=== PATIENT | female | born 1950 | race Caucasian/White ===

== ENCOUNTER 2017-04-21 10:00 | Outpatient (RCR) | payer MEDICARE ==
[2017-03-29 13:15] VITALS: BP 114/71
--- NOTE | 2017-03-29 13:20 | ONC Progress Note - NP.Halsey ---
Patient History Date of Service Mar 29, 2017 Reason For Visit/HPI Patient is seen in the clinic today for follow-up of her breast cancer. Patient is currently a stage IV according to PET/CT scan and was started on ibrance with her Femara by Dr. Kaden Breaux at [facility]. Patient started Ibrance in October and reports that she has had to decrease the dose due to neutropenia. She is currently on cycle 4 and has 1 week of treatment to complete this cycle. She has required 2 week break prior to each dose reduction. She has been out of state for the last 3 months and is back in town. She is currently on 75 mg daily 3 weeks on a 4 week cycle. She currently is looking for a breast specialist oncology provider. She is not sure she wants to travel to see Dr. Kaden Breaux on a monthly basis especially with the winter months. She is in need of labs today and then we will follow monthly with labs. She has not had any further testing done recently. Oncology History The patient is a 66-year-old female who presented with a mass of the right breast. Her mammogram and ultrasound showed an area suspicious in the right breast upper outer quadrant. The patient ended by having bilateral mastectomy and right axillary lymph node biopsy done on March 08, 2016. The pathology came back positive for 2 cm invasive lobular carcinoma of the right breast, grade III/III, with 8/8 lymph nodes coming back positive for metastasis. ER/VA positive, HER2/alcides negative. Ki-67 was 84%. CA 27-29 was normal at 8. The patient had an echocardiogram on February 23, 2016, which showed left ventricular ejection fraction of 55%. MRI of the brain done on March 28, 2016 was negative for intracranial metastasis and PET scan done the same day showed multiple small, scattered sclerotic non-hypermetabolic bone lesions; metastatic disease could not be fully ruled out. The patient has been evaluated by Dr. Nimco Watkins at [facility] with recommendation of treatment with dose-dense AC to be followed by dose-dense Taxol and patient will start adjuvant hormonal therapy at the same time of Taxol to be followed by radiation therapy versus inclusion in a clinical trial. The patient started adjuvant dose-dense AC with Adriamycin and cyclophosphamide on April 07, 2016. She started dose dense adjuvant Taxol therapy on June 07, 2016. The patient completed four cycles of dose-dense Taxol on July 18, 2016. Radiation therapy was completed between 08/26/2016 and 10/12/2016 to the right breast and axilla to a therapeutic dose of 6040 cGy. Repeat PET scan indicates stage IV disease. Patient had a 2nd biopsy which was inconclusive according to her. Patient was started on ibrance early in October with concurrent Femara. Patient has required dose reduction due to neutropenia. She is currently on 75 mg daily Medical History Family History: FH: HTN (hypertension) MOTHER, , Age:91 FH: [place] (myocardial infarction) MOTHER, , Age:91 FH: breast cancer Aunt Cousin FH: glaucoma MOTHER, , Age:91 FH: lung cancer MOTHER, , Age:91 FH: macular degeneration MOTHER, , Age:91 FH: prostate cancer Cousin Psychosocial History Social History She is single Occupational History She is retired Alcohol History She denies abuse Smoking History: No Smoking Status: Never Smoker Exposure to Second Hand Smoke?: No Medications and Allergies Active Scripts Letrozole (FEMARA) 2.5 Mg Tab, 2.5 MG GT DAILY, #30 TAB 9 Refills Prov:NIMCO DUMONT PATIENT SAFETY MANAGER-BC, ONC 05/23/16 Reported Medications Glucosamine Sulfate 2KCL (GLUCOSAMINE) 1,000 Mg Tablet, 1000 MG PO 03/29/17 Palbociclib (Ibrance) 75 Mg Capsule 03/29/17 Ubidecarenone (CO Q-10) 10 Mg Capsule, 10 MG PO DAILY, CAPSULE 06/16/16 Cyanocobalamin (Vitamin B-12) (VITAMIN B-12) 1,000 Mcg Tablet, 1000 MCG PO DAILY 06/16/16 Vitamin B Complex (B COMPLEX) 1 Each Tablet, 1 EACH PO DAILY 06/16/16 Phytonadione (VITAMIN K) 100 Mcg Tablet, 100 MCG PO DAILY 06/16/16 Calcium Citrate/Vitamin D3 (CALCIUM CITRATE - VIT D TABLET) 1 Each Tablet, 2 TAB PO DAILY, TAB 03/15/16 Cholecalciferol (Vitamin D3) (VITAMIN D3) 5,000 Unit Tablet, 2 TAB PO DAILY, TAB 03/15/16 [Areds 2] No Conflict Check, 2 TAB PO DAILY for Eye Health 03/15/16 Discontinued Reported Medications Melatonin/Pyridoxine (MELATONIN 3 MG TABLET) 1 Each Tablet, 1 TAB PO QHS Y for INSOMNIA, TAB 03/15/16 Discontinued Scripts Lorazepam (ATIVAN) 0.5 Mg Tablet, 0.5 MG PO Q4-6H Y for NAUSEA, #10 TAB Prov:NIMCO DUMONT PATIENT SAFETY MANAGER-BC, ONC 04/07/16 Ondansetron Hcl (ZOFRAN) 8 Mg Tablet, 8 MG PO Q8H, #10 TAB Prov:NIMCO DUMONT PATIENT SAFETY MANAGER-BC, ONC 04/07/16 Allergies: Coded Allergies: No Known Drug Allergies (Verified , 06/05/12) Review of System/Physical Exam Review of Systems All Systems Reviewed/Normal: Yes, Except as Noted Hematologic: Positive for Fatigue Physical Exam Vital Signs Temperature: 98.6 Pulse: 70 BP Systolic: 114 BP Diastolic: 71 Respiratory Rate: 16 O2 SAT: 94 O2 Delivery: Height (inches) 62.00 Weight lb: 113 Weight oz: Weight Kg (Karan): Pain: 0 ECOG Score: 0 General: Stable, Well Developed, Well Nourished, Not In Acute Distress Lungs: Clear to Auscultation Heart: Regular Rate, Regular Rhythm, No Gallops Abdomen: Other (bowel sounds active) Extremities: No Cyanosis, No Edema Psychiatric: Mood appears normal, Affect appears normal, Other (exam was deferred today to discuss current treatment and management of therapy.) Diagnostic Studies Diagnostic Studies Laboratory CBC, CMP and vitamin D drawn today Item Value Date Time White Blood Count 2.1 k/uL L 03/29/17 1345 Red Blood Count 3.78 M/uL L 03/29/17 1345 Mean Corpuscular Volume 101.2 fL H 03/29/17 1345 Mean Corpuscular Hemoglobin 35.0 pg H 03/29/17 1345 Neutrophils # (Auto) 1.2 K/uL L 03/29/17 1345 Vitamin D 25-Hydroxy 74 ng/ml 03/29/17 1345 Sodium Level 137 mmol/L 03/29/17 1345 Potassium Level 4.0 mmol/L 03/29/17 1345 Chloride Level 102 mmol/L 03/29/17 1345 Carbon Dioxide Level 25 mmol/L 03/29/17 1345 Blood Urea Nitrogen 15 mg/dl 03/29/17 1345 Creatinine 0.90 mg/dl 03/29/17 1345 Glomerular Filtration Rate Calc > 60.0 03/29/17 1345 Random Glucose 79 mg/dl 03/29/17 1345 Calcium Level 9.4 mg/dl 03/29/17 1345 Total Bilirubin 0.7 mg/dl 03/29/17 1345 Aspartate Amino Transf (AST/SGOT) 33 U/L 03/29/17 1345 Alanine Aminotransferase (ALT/SGPT) 39 U/L 03/29/17 1345 Alkaline Phosphatase 49 U/L 03/29/17 1345 Total Protein 7.1 gm/dl 03/29/17 1345 Albumin 4.2 g/dl 03/29/17 1345 Assessment and Plan Assessment & Plan 1. Initial staging with consult was a Stage III right invasive lobular carcinoma of the right breast status post bilateral mastectomy with right axillary lymph node dissection done March 08, 2016 for 2 cm invasive lobular carcinoma grade 2/3 with 8 out of 8 lymph nodes positive for metastasis, ER/VA positive, HER2/alcides negative, Ki-67 8.4%. MRI of the brain done March 2016 was negative for intracranial metastases, and PET scan showed multiple sclerotic nonhypermetabolic bone lesions. Echocardiogram February 23, 2016 did reveal normal left ventricular ejection fraction of 55%. Patient has been evaluated by Dr. Nimco Watkins at [facility], who recommended dose dense AC to be followed by dose dense Taxol, and patient completed 4 cycles of dose dense AC between April 07, 2016 through May 19, 2016. After that, she received dose dense Taxol for 4 cycles between June 07, 2016 through July 18, 2016 with concurrent hormonal therapy with Femara. She completed her radiation therapy. Her PET scan was really positive, but it was thought may be due to her Neulasta shot, but her repeated scan was also suggestive of osseous metastasis by radiologist report, although it looks the same like the previous scan. Patient was seen by clinical trial staff and was not eligible. She consulted with Dr. Kaden Breaux and completed a second biopsy of the left hip which was inconclusive again as the previous. She was started on Ibrance in October 2016 with Femara. Patient has required a dose reduction due to neutropenia. She has been followed by Dr. Kaden Breaux. She is currently on cycle 4 of ibrance 75 mg dose week 3 today. She tentatively will start cycle 5 on April 12. She will need a new prescription through [facility] pharmacy. 2. Sclerotic bone lesions, negative by PET scan twice. Her bone scan is still positive, which was done recently on October 13, 2016. She has discussed the use of Xgeva with Dr. Breaux but has not been started on it. 3. Vitamin D deficiency. Patient's vitamin D has improved on 10,000 units daily. level is at 74. 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 Sweetie Breaux if she follows with him again. She is considering establishing care with Dr. Rios. I personally spent a total of 30 minutes. Of that 30 minutes was counseling/ coordination of patient's care. See my note above for details. Copies to: DEMARIO ZHU DNP, PATIENT SAFETY MANAGER-BC NIMCO DUMONT PATIENT SAFETY MANAGER-BC, ONC Mar 29, 2017 13:20
[2017-03-29 14:10] LABS: PLATELET COUNT, AUTOMATED 164 K/uL (150-450)
[2017-04-12 09:10] VITALS: BP 93/61
[2017-04-12 09:13] LABS: PLATELET COUNT, AUTOMATED 138 K/uL (150-450)
--- NOTE | 2017-04-12 12:04 | ONC Progress Note - NP.Halsey ---
Patient History Date of Service Apr 12, 2017 Reason For Visit/HPI Patient is seen in the clinic today for follow-up of her breast cancer. Patient is currently a stage IV according to PET/CT scan and was started on ibrance with her Femara by Dr. Kaden Breaux at [facility]. Patient started Ibrance in October and reports that she has had to decrease the dose due to neutropenia. She has completed cycle 4 . Her absolute neutrophil count is 700 today so she will wait one additional week, redraw labs and possibly start. She has required 2 week break prior to each previously and the dose reduction. She is currently on 75 mg daily 3 weeks on a 4 week cycle. She currently is looking for a breast specialist oncology provider. She is not sure she wants to travel to see Dr. Kaden Breaux on a monthly basis especially with the winter months. She also thinks that maybe she will go back to [facility] however does not want to see them on a monthly basis. Patient reports that she has had Xgeva which was initiated in December by Dr. Kaden Breaux. She does not believe that she has had a 2nd Xgeva since that time. Problem List (1) Hypercholesteremia (2) Post-menopausal (3) Metastatic breast cancer (4) Estrogen receptor positive (5) Chemotherapy induced nausea and vomiting (6) Invasive lobular carcinoma of breast, stage 3 (7) Breast cancer, right Oncology History The patient is a 66-year-old female who presented with a mass of the right breast. Her mammogram and ultrasound showed an area suspicious in the right breast upper outer quadrant. The patient ended by having bilateral mastectomy and right axillary lymph node biopsy done on March 08, 2016. The pathology came back positive for 2 cm invasive lobular carcinoma of the right breast, grade III/III, with 8/8 lymph nodes coming back positive for metastasis. ER/NJ positive, HER2/alcides negative. Ki-67 was 84%. CA 27-29 was normal at 8. The patient had an echocardiogram on February 23, 2016, which showed left ventricular ejection fraction of 55%. MRI of the brain done on March 28, 2016 was negative for intracranial metastasis and PET scan done the same day showed multiple small, scattered sclerotic non-hypermetabolic bone lesions; metastatic disease could not be fully ruled out. The patient has been evaluated by Dr. Nimco Watkins at [facility] with recommendation of treatment with dose-dense AC to be followed by dose-dense Taxol and patient will start adjuvant hormonal therapy at the same time of Taxol to be followed by radiation therapy versus inclusion in a clinical trial. The patient started adjuvant dose-dense AC with Adriamycin and cyclophosphamide on April 07, 2016. She started dose dense adjuvant Taxol therapy on June 07, 2016. The patient completed four cycles of dose-dense Taxol on July 18, 2016. Radiation therapy was completed between 08/26/2016 and 10/12/2016 to the right breast and axilla to a therapeutic dose of 6040 cGy. Repeat PET scan indicates stage IV disease. Patient had a 2nd biopsy which was inconclusive according to her. Patient was started on ibrance early in October with concurrent Femara. Patient has required dose reduction due to neutropenia. She is currently on 75 mg daily Patient reports that Dr. Kaden Breaux started her on Xgeva 120 mg in December but she has not had a 2nd dose due to her traveling. I will reinitiate this today Medical History Family History: FH: HTN (hypertension) MOTHER, , Age:91 FH: [place] (myocardial infarction) MOTHER, , Age:91 FH: breast cancer Aunt Cousin FH: glaucoma MOTHER, , Age:91 FH: lung cancer MOTHER, , Age:91 FH: macular degeneration MOTHER, , Age:91 FH: prostate cancer Cousin Psychosocial History Social History She is single Occupational History She is retired Alcohol History She denies abuse Smoking History: No Smoking Status: Never Smoker Exposure to Second Hand Smoke?: No Medications and Allergies Active Scripts Letrozole (FEMARA) 2.5 Mg Tab, 2.5 MG GT DAILY, #30 TAB 9 Refills Prov:NIMCO DUMONT CUSTOMER ACCOUNT COORDINATOR-BC, ONC 05/23/16 Reported Medications [tumeric] No Conflict Check, PO 04/12/17 Glucosamine Sulfate 2KCL (GLUCOSAMINE) 1,000 Mg Tablet, 1000 MG PO 03/29/17 Palbociclib (Ibrance) 75 Mg Capsule 03/29/17 Ubidecarenone (CO Q-10) 10 Mg Capsule, 10 MG PO DAILY, CAPSULE 06/16/16 Cyanocobalamin (Vitamin B-12) (VITAMIN B-12) 1,000 Mcg Tablet, 1000 MCG PO DAILY 06/16/16 Vitamin B Complex (B COMPLEX) 1 Each Tablet, 1 EACH PO DAILY 06/16/16 Phytonadione (VITAMIN K) 100 Mcg Tablet, 100 MCG PO DAILY 06/16/16 Calcium Citrate/Vitamin D3 (CALCIUM CITRATE - VIT D TABLET) 1 Each Tablet, 2 TAB PO DAILY, TAB 03/15/16 Cholecalciferol (Vitamin D3) (VITAMIN D3) 5,000 Unit Tablet, 2 TAB PO DAILY, TAB 03/15/16 [Areds 2] No Conflict Check, 2 TAB PO DAILY for Eye Health 03/15/16 Allergies: Coded Allergies: No Known Drug Allergies (Verified , 06/05/12) Review of System/Physical Exam Review of Systems All Systems Reviewed/Normal: Yes, Except as Noted Hematologic: Positive for Fatigue Psychiatric: Depression (patient is very angry and frustrated with her current diagnosis and does not see a positive side most days regarding this diagnosis.) Physical Exam Vital Signs Temperature: 98.9 Pulse: 70 BP Systolic: 93 BP Diastolic: 61 Respiratory Rate: 16 O2 SAT: 95 O2 Delivery: Height (inches) 62.00 Weight lb: 113 Weight oz: Weight Kg (Karan): Pain: 0 ECOG Score: 0 General: Stable, Well Developed, Well Nourished, Not In Acute Distress Heart: Regular Rate, Regular Rhythm, No Gallops Abdomen: Soft and Nontender, No Hepatosplenomegaly, No Masses Psychiatric: Mood appears normal, Affect appears normal (normal regarding patient's current diagnosis.) Diagnostic Studies Diagnostic Studies Laboratory Laboratory Tests 04/12/17 09:00 Laboratory Tests 03/29/17 13:45: Vitamin D 25-Hydroxy 74 04/12/17 09:00: White Blood Count 1.7, Red Blood Count 3.74, Hemoglobin 13.0, Hematocrit 37.5, Mean Corpuscular Volume 100.3, Mean Corpuscular Hemoglobin 34.9, Mean Corpuscular Hemoglobin Concent 34.8, Red Cell Distribution Width 14.7, Platelet Count 138, Mean Platelet Volume 7.8, Neutrophils (%) (Auto) 40.6, Lymphocytes (% ) (Auto) 31.4, Monocytes (%) (Auto) 21.5, Eosinophils (%) (Auto) 4.9, Basophils (%) (Auto) 1.6, Nucleated RBC Relative Count (auto) 0.1, Neutrophils # (Auto) 0.7, Lymphocytes # (Auto) 0.5, Monocytes # (Auto) 0.4, Eosinophils # (Auto) 0.1 , Basophils # (Auto) 0.0, Nucleated RBC Absolute Count (auto) 0.00, Peripheral Blood Smear Yes, Sodium Level 140, Potassium Level 4.3, Chloride Level 107, Carbon Dioxide Level 26, Blood Urea Nitrogen 14, Creatinine 0.70, Glomerular Filtration Rate Calc > 60.0, Random Glucose 87, Calcium Level 8.7, Total Bilirubin 0.3, Aspartate Amino Transf (AST/SGOT) 32, Alanine Aminotransferase ( ALT/SGPT) 35, Alkaline Phosphatase 40, Total Protein 6.6, Albumin 3.8 Assessment and Plan Assessment & Plan 1. Initial staging with consult was a Stage III right invasive lobular carcinoma of the right breast status post bilateral mastectomy with right axillary lymph node dissection done March 08, 2016 for 2 cm invasive lobular carcinoma grade 2/3 with 8 out of 8 lymph nodes positive for metastasis, ER/NJ positive, HER2/alcides negative, Ki-67 8.4%. MRI of the brain done March 2016 was negative for intracranial metastases, and PET scan showed multiple sclerotic nonhypermetabolic bone lesions. Echocardiogram February 23, 2016 did reveal normal left ventricular ejection fraction of 55%. Patient has been evaluated by Dr. Nimco Watkins at [facility], who recommended dose dense AC to be followed by dose dense Taxol, and patient completed 4 cycles of dose dense AC between April 07, 2016 through May 19, 2016. After that, she received dose dense Taxol for 4 cycles between June 07, 2016 through July 18, 2016 with concurrent hormonal therapy with Femara. She completed her radiation therapy. Her PET scan was really positive, but it was thought may be due to her Neulasta shot, but her repeated scan was also suggestive of osseous metastasis by radiologist report, although it looks the same like the previous scan. Patient was seen by clinical trial staff and was not eligible. She consulted with Dr. Kaden Breaux and completed a second biopsy of the left hip which was inconclusive again as the previous. She was started on Ibrance in October 2016 with Femara. Patient has required a dose reduction due to neutropenia. She has been followed by Dr. Kaden Breaux. She has just completed cycle 4 of ibrance 75 mg dose week. Her ANC is 700 today so I will hold an additional week and repeat labs. If ANC is 1000 or greater she will restart Ibrance next week. She tentatively will start cycle 5 on April 19 at the 75 mg dose. Patient also reports that she was started on Xgeva 120 mg in December and has not had a 2nd dose. I will restart this on a monthly basis next week. Patient will also have a PET/CT scan completed in May prior to starting cycle 6 of current treatment for evaluation. Patient is encouraged to visit with [facility] and see if they would continue to monitor her care on a 3-4 month basis. She may follow with Dr. Velasquez in the [place] clinic. She may seek care by a new provider. She is not sure if she wants to continue following with Dr. Kaden Breaux as he is a research specialist. He is not currently on a clinical trial. 2. Sclerotic bone lesions, negative by PET scan twice. Her bone scan is still positive, which was done recently on October 13, 2016. I will repeat a PET CT scan in May. 3. Vitamin D deficiency. Patient's vitamin D has improved on 10,000 units daily. level is at 74. I personally spent a total of 30 minutes. Of that 30 minutes was counseling/ coordination of patient's care. See my note above for details. NIMCO DUMONT CUSTOMER ACCOUNT COORDINATOR-BC, ONC Apr 12, 2017 12:04
[2017-04-19 11:08] LABS: PLATELET COUNT, AUTOMATED 204 K/uL (150-450)
[~2017-04-21] VITALS: Ht 157.5 cm; Wt 52.1 kg
[~2017-04-21 10:00] MED LIST: AREDS II OP; Areds 2 PO; CALC-757 PO; CALC-797 PO; CHOL500025 PO; CYA1000 PO; DENOSUMAB 120 MG/1.7 ML VIAL SUBQ ONE; DEX4 PO; DIPH0.5V3 IM; ERG400 PO; FLU60VIA21 IM ONLY; GARL500T PO; GLUC100026 PO; KELP PO; LETPT GT; LEVO-85 PO; LORA-1455 PO; MAGN27TA6 PO; MAGN400C PO; MELA1TAB27 PO; ONDA8TAB91 PO; PALB75CA; PHYT100T4 PO; PNEU0.5D3 IM; POTA99TA6 PO; RISE5TAB PO; UBID10CA11 PO; VITA-175 PO; tumeric PO
[2017-04-21 11:42] LABS: PLATELET COUNT, AUTOMATED 227 K/uL (150-450)
[2017-05-18 14:06] LABS: PLATELET COUNT, AUTOMATED 146 K/uL (150-450)
== END 2017-05-19 11:11 | disposition home or self-care (01) ==
LOC: SPU 10:00
PROVIDERS: ATTEND Nurse Practitioner Family
DX: C50.911 Malignant neoplasm of unspecified site of right female breast (principal); C77.9 Secondary and unspecified malignant neoplasm of lymph node, unspecified; Z92.3 Personal history of irradiation; Z92.21 Personal history of antineoplastic chemotherapy; M89.9 Disorder of bone, unspecified; E55.9 Vitamin D deficiency, unspecified; Z79.899 Other long term (current) drug therapy; E78.00 Pure hypercholesterolemia, unspecified; Z78.0 Asymptomatic menopausal state; R11.2 Nausea with vomiting, unspecified; R53.83 Other fatigue; Z17.0 Estrogen receptor positive status [ER+]
CPT/HCPCS: 36415; 82306; 82378; 83735; 84100; 85025; 86300; 86304; 96372; G0463; J0897; 82040; 82247; 82310; 82374; 82435; 82565; 82947; 84075; 84132; 84155; 84295; 84450; 84460; 84520; 99212

== ENCOUNTER 2017-06-15 10:11 | Outpatient (RCR) | payer MEDICARE ==
[2017-05-24 15:19] VITALS: BP 132/80
[2017-06-15 10:36] LABS: PLATELET COUNT, AUTOMATED 149 K/uL (150-450)
[2017-06-15 10:46] VITALS: BP 99/63
[2017-06-19] MEDS ORDERED: LUTE20TA PO (13:09)
== END 2017-06-21 10:51 | disposition home or self-care (01) ==
LOC: SPU 10:11
PROVIDERS: ATTEND Nurse Practitioner Family
DX: C50.911 Malignant neoplasm of unspecified site of right female breast (principal)
CPT/HCPCS: 36415; 85025; 96372; J0897; 82040; 82247; 82310; 82374; 82435; 82565; 82947; 84075; 84132; 84155; 84295; 84450; 84460; 84520

== ENCOUNTER 2017-06-29 03:30 | Day surgery (SDC) | payer MEDICARE ==
[2017-06-29] VITALS (7 sets, daily range): BP systolic 86–109; BP diastolic 56–83
[~2017-06-29] VITALS: Ht 157.5 cm; Wt 49.9 kg
[~2017-06-29 03:30] MED LIST changes: -DENOSUMAB 120 MG/1.7 ML VIAL SUBQ ONE; +LUTE20TA PO
--- NOTE | 2017-06-29 06:29 | Post Operative Progress Note ---
Post Operative Progress Note Date: Jun 29, 2017 Time: 08:49 Surgeon: yesenia Anesthesia: dr orozco Pre-Op Diagnosis: personal history of polyps Post-Op Diagnosis: sigmoid diverticulosis Procedure(s): colonoscopy KAMAR KRISHNAN MD Jun 29, 2017 06:29
--- NOTE | 2017-06-29 06:30 | Short(Outpt) Discharge Summary ---
Discharge Summary Reason for Hosp/Final Diag: (1) Encounter for colonoscopy due to history of adenomatous colonic polyps Hospital Course & Plan: sigmoid diverticulosis Departure Discharge to: Home Discharge Instructions Home Meds Active Scripts Letrozole (FEMARA) 2.5 Mg Tab, 2.5 MG GT DAILY, #30 TAB 9 Refills Prov:BECKY DUMONT Tucker CONTRACT RUNNER-BC, ONC 05/23/16 Reported Medications Lutein (LUTEIN) 20 Mg Tablet, 20 MG PO 06/19/17 [tumeric] No Conflict Check, PO 04/12/17 Glucosamine Sulfate 2KCL (GLUCOSAMINE) 1,000 Mg Tablet, 1000 MG PO 03/29/17 Palbociclib (Ibrance) 75 Mg Capsule 03/29/17 Ubidecarenone (CO Q-10) 10 Mg Capsule, 10 MG PO DAILY, CAPSULE 06/16/16 Cyanocobalamin (Vitamin B-12) (VITAMIN B-12) 1,000 Mcg Tablet, 1000 MCG PO DAILY 06/16/16 Vitamin B Complex (B COMPLEX) 1 Each Tablet, 1 EACH PO DAILY 06/16/16 Phytonadione (VITAMIN K) 100 Mcg Tablet, 100 MCG PO DAILY 06/16/16 Calcium Citrate/Vitamin D3 (CALCIUM CITRATE - VIT D TABLET) 1 Each Tablet, 2 TAB PO DAILY, TAB 03/15/16 Cholecalciferol (Vitamin D3) (VITAMIN D3) 5,000 Unit Tablet, 2 TAB PO DAILY, TAB 03/15/16 Diet: High Fiber Activity: As Tolerated KAMAR KRISHNAN MD Jun 29, 2017 06:30
[2017-06-29] MEDS ORDERED: MIDAZOLAM 2 MG/2 ML VIAL IVP PRN (07:20)
[2017-06-29] MEDS ORDERED: LIDOCAINE/SOD BICARB 8.4% SYR ID ONE (07:20)
[2017-06-29] MEDS ORDERED: NORMOSOL R SOLN(*) 1000 ML BAG 1,000 ML IV PRN (07:20)
[2017-06-29] MEDS ORDERED: PROPOFOL EMUL(*) 10MG/ML 20 ML 20 ML ONE (07:25)
--- NOTE | 2017-06-29 14:27 | OPERATIVE REPORT 1 ---
EVENT DATE: June 29, 2017 SURGEON: Hipolito Jackson MD ANESTHESIOLOGIST: Reji Franco MD ANESTHESIA: Sedation. PREOPERATIVE DIAGNOSIS Personal history of polyps. POSTOPERATIVE DIAGNOSIS Diverticulosis. DESCRIPTION OF PROCEDURE The patient was placed in the left lateral decubitus position and given intravenous sedation. The rectal exam was unremarkable. A flexible colonoscope was inserted and advanced to the cecum. She had an excellent bowel prep. Ileocecal valve and the terminal ileum were identified. The scope was slowly withdrawn. Care was taken to look behind the haustral folds. No abnormalities were noted in the cecum, right colon, or transverse colon. In the descending colon and sigmoid colon, she had several diverticula. No evidence of diverticulitis. The rectum was normal. The scope was retroflexed. That appeared to be normal. The patient will require a repeat colonoscopy in five years because of her history of polyps. [email or web address]
== END 2017-06-29 09:50 | disposition home or self-care (01) ==
LOC: OR 03:30
PROVIDERS: ATTEND Surgery
DX: Z12.11 Encounter for screening for malignant neoplasm of colon (principal); K57.30 Diverticulosis of large intestine without perforation or abscess without bleeding
CPT/HCPCS: 00812; G0121; J2704

== ENCOUNTER → 2017-07-17 | Outpatient (CLI) | payer MEDICARE ==
[2017-07-17 08:30] VITALS: BP 105/69
== END ==
LOC: SPU 08:24
PROVIDERS: ATTEND Internal Medicine Hematology & Oncology
DX: C50.411 Malignant neoplasm of upper-outer quadrant of right female breast (principal); Z17.0 Estrogen receptor positive status [ER+]; C79.51 Secondary malignant neoplasm of bone
CPT/HCPCS: 36415

== ENCOUNTER 2017-08-18 10:30 | Outpatient (RCR) | payer MEDICARE ==
[2017-07-17 08:37] LABS: PLATELET COUNT, AUTOMATED 111 K/uL (150-450)
[~2017-08-18 10:30] MED LIST changes: -DENOSUMAB 120 MG/1.7 ML VIAL SUBQ ONE
[2017-08-18] MEDS ORDERED: DENOSUMAB 120 MG/1.7 ML VIAL SUBQ ONE (10:40)
[2017-08-18 12:00] LABS: PLATELET COUNT, AUTOMATED 132 K/uL (150-450)
[2017-08-18 12:01] VITALS: BP 91/61
== END 2017-08-25 10:58 | disposition home or self-care (01) ==
LOC: SPU 10:30
PROVIDERS: ATTEND Nurse Practitioner Family
DX: C50.911 Malignant neoplasm of unspecified site of right female breast (principal)
CPT/HCPCS: 36415; 82040; 82247; 82310; 82374; 82378; 82435; 82565; 82947; 83735; 84075; 84100; 84132; 84155; 84295; 84450; 84460; 84520; 85025; 86300; 86304

== ENCOUNTER → 2017-08-18 | Outpatient (CLI) | payer MEDICARE ==
[~2017-08-18] MED LIST changes: +DENOSUMAB 120 MG/1.7 ML VIAL SUBQ ONE
== END ==
LOC: SPU 10:23
PROVIDERS: ATTEND Nurse Practitioner Family
DX: C50.911 Malignant neoplasm of unspecified site of right female breast (principal)
CPT/HCPCS: 96372; J0897

== ENCOUNTER 2017-12-07 08:15 | Outpatient (RCR) | payer MEDICARE ==
[2017-12-07 08:25] VITALS: BP 97/69
[2017-12-07 08:48] LABS: PLATELET COUNT, AUTOMATED 124 K/uL (150-450)
== END 2017-12-29 08:45 | disposition home or self-care (01) ==
LOC: SPU 08:15
PROVIDERS: ATTEND Internal Medicine Hematology & Oncology
DX: C50.411 Malignant neoplasm of upper-outer quadrant of right female breast (principal); C79.51 Secondary malignant neoplasm of bone; Z17.0 Estrogen receptor positive status [ER+]; E83.42 Hypomagnesemia
CPT/HCPCS: 36415; 82040; 82247; 82310; 82374; 82435; 82565; 82947; 83735; 84075; 84100; 84132; 84155; 84295; 84450; 84460; 84520; 85025

== ENCOUNTER 2018-01-03 09:20 | Outpatient (RCR) | payer MEDICARE ==
[2018-01-03] MEDS ORDERED: DENOSUMAB 120 MG/1.7 ML VIAL SUBQ PRN (13:25)
[2018-01-03 15:44] VITALS: BP 101/68
== END 2018-01-24 09:36 | disposition home or self-care (01) ==
LOC: SPU 09:20
PROVIDERS: ATTEND Internal Medicine Hematology & Oncology
DX: C50.411 Malignant neoplasm of upper-outer quadrant of right female breast (principal); C79.51 Secondary malignant neoplasm of bone; Z17.0 Estrogen receptor positive status [ER+]
CPT/HCPCS: 96372; J0897

== ENCOUNTER → 2018-01-05 | Outpatient (CLI) | payer MEDICARE ==
[2018-01-05 10:25] VITALS: BP 97/64
[2018-01-05 10:52] LABS: PLATELET COUNT, AUTOMATED 130 K/uL (150-450)
== END ==
LOC: SPU 08:06
PROVIDERS: ATTEND Internal Medicine Hematology & Oncology
DX: C50.411 Malignant neoplasm of upper-outer quadrant of right female breast (principal); Z17.0 Estrogen receptor positive status [ER+]; C79.51 Secondary malignant neoplasm of bone; E83.42 Hypomagnesemia
CPT/HCPCS: 36415; 82040; 82247; 82310; 82374; 82435; 82565; 82947; 83735; 84075; 84100; 84132; 84155; 84295; 84450; 84460; 84520; 85025

== ENCOUNTER 2018-06-22 11:00 | Outpatient (RCR) | payer MEDICARE ==
[2018-03-30 11:31] VITALS: BP 118/76
[2018-03-30 11:42] LABS: PLATELET COUNT, AUTOMATED 136 K/uL (150-450)
[2018-04-27 10:52] LABS: PLATELET COUNT, AUTOMATED 139 K/uL (150-450)
--- NOTE | 2018-05-10 16:07 | NUR ---
LEFT MESSAGE FOR PT TO RTN CALL. PT NEEDS TO SCHEDULE LAB DRAW PER DR. DUMONT AROUND 05/25/18. Jules BETH RN
[2018-05-25 10:44] LABS: PLATELET COUNT, AUTOMATED 156 K/uL (150-450)
[2018-05-25 10:46] VITALS: BP 105/75
[~2018-06-22 11:00] MED LIST changes: +DENOSUMAB 120 MG/1.7 ML VIAL SUBQ ONE
[2018-06-22 11:35] LABS: PLATELET COUNT, AUTOMATED 135 K/uL (150-450)
[2018-06-22 12:00] VITALS: BP 108/77
== END 2018-06-27 ==
LOC: SPU 11:00
PROVIDERS: ATTEND Internal Medicine Hematology & Oncology
DX: C50.411 Malignant neoplasm of upper-outer quadrant of right female breast (principal); C79.51 Secondary malignant neoplasm of bone; Z17.0 Estrogen receptor positive status [ER+]
CPT/HCPCS: 36415; 82607; 83735; 84100; 85025; 96372; J0897; 82040; 82247; 82310; 82374; 82435; 82565; 82947; 84075; 84132; 84155; 84295; 84450; 84460; 84520

== ENCOUNTER → 2018-07-20 | Outpatient (CLI) | payer MEDICARE ==
[~2018-07-20] MED LIST changes: -DENOSUMAB 120 MG/1.7 ML VIAL SUBQ ONE
[2018-07-20 10:37] VITALS: BP 97/56
[2018-07-20 10:46] LABS: PLATELET COUNT, AUTOMATED 133 K/uL (150-450)
== END ==
LOC: SPU 08:47
PROVIDERS: ATTEND Internal Medicine Hematology & Oncology
DX: C50.411 Malignant neoplasm of upper-outer quadrant of right female breast (principal); Z17.0 Estrogen receptor positive status [ER+]; C79.51 Secondary malignant neoplasm of bone; E83.42 Hypomagnesemia
CPT/HCPCS: 36415; 82040; 82247; 82310; 82374; 82435; 82565; 82947; 83735; 84075; 84100; 84132; 84155; 84295; 84450; 84460; 84520; 85025

== ENCOUNTER 2018-11-09 10:00 | Outpatient (RCR) | payer MEDICARE ==
[2018-08-17 08:47] VITALS: BP 100/62
[2018-08-17 09:01] LABS: PLATELET COUNT, AUTOMATED 142 K/uL (150-450)
[2018-11-09 11:27] VITALS: BP 90/60
[2018-11-09 11:30] LABS: PLATELET COUNT, AUTOMATED 123 K/uL (150-450)
== END 2018-11-14 ==
LOC: SPU 10:00
PROVIDERS: ATTEND Internal Medicine Hematology & Oncology
DX: C50.411 Malignant neoplasm of upper-outer quadrant of right female breast (principal); C79.51 Secondary malignant neoplasm of bone; Z17.0 Estrogen receptor positive status [ER+]; E83.42 Hypomagnesemia
CPT/HCPCS: 36415; 82040; 82247; 82310; 82374; 82435; 82565; 82947; 83735; 84075; 84100; 84132; 84155; 84295; 84450; 84460; 84520; 85025